=== PATIENT | female | born 1965 | race African-American/Black ===

== ENCOUNTER 2023-08-03 11:51 | Emergency (ER) | payer OTHER ==
[2023-08-03 12:01] VITALS: O2SAT 100
--- NOTE | 2023-08-03 13:47 | ED Physician Documentation ---
History of Present Illness - Stated complaint Stated Complaint: UPPER RT ARM PX - Chief complaint Chief Complaint: Ext Problem - History obtained from History obtained from: Patient - Additonal information Additional information: Patient comes to the emergency department chief complaint of right shoulder pain that started 2 days ago after she began traveling from [place] to [place] via [place]. She states she had about a 48-hour trip and that she was carrying a backpack over her right shoulder when she was not on the train. She states she does not really know if it was the weight of the backpack or what, but she began to have very notable soreness in her shoulder especially on the anterior aspect. She states it also shoots down her arm. No chest pain or abdominal pain. No constitutional symptoms. She does not have any history of this before. No nausea or vomiting. No other complaints at this time. She states there was no distinct injury or other trigger that she can think of. PD PAST MEDICAL HISTORY - Past Medical History Past Medical History: Yes Cardiovascular: Hypertension Respiratory: None Neuro: None Endocrine/Autoimmune: None GI: None TRUCK CHAUFFEUR: None : None HEENT: None Musculoskeletal: None Derm: None - Present Medications Home Medications: Ambulatory Orders Medication Instructions Recorded Confirmed HYDROcod/ACETAM 5/325 [Minden 5/325] 1 - 2 tablet PO Q6H PRN #4 tablet 08/03/23 Ibuprofen [Motrin] 800 mg PO Q8H PRN #30 tablet 08/03/23 predniSONE [Deltasone] 10 mg PO [id number] #42 tab 08/03/23 - Allergies Allergies/Adverse Reactions: Allergies Allergy/AdvReac Type Severity Reaction Status Date / Time No Known Drug Allergies Allergy Verified 08/03/23 11:55 - Social History Does the pt smoke?: No Smoking Status: Never smoker Does the pt drink ETOH?: No Does the pt have substance abuse?: No - Immunizations Immunizations are current?: No - POLST Patient has POLST: No PD ED PE NORMAL - Vitals Vital signs reviewed: Yes - General General: Alert and oriented X 3, No acute distress, Well developed/nourished - HEENT HEENT: Atraumatic, EOMI, Moist mucous membranes - Neck Neck: Supple, no meningeal sign - Cardiac Cardiac: Strong equal pulses - Respiratory Respiratory: No respiratory distress - Derm Derm: Normal color, Warm and dry, No rash - Extremities Extremities: No deformity, Other (Exquisite tenderness to palpation over the anterior aspect of the right shoulder. Significantly limited range of motion will forward flexion, abduction, and internal rotation, secondary to pain. No edema or deformity.) - Neuro Neuro: Alert and oriented X 3 - Psych Psych: Normal mood, Normal affect Results - Vitals Vitals: Vital Signs - 24 hr 08/03/23 11:55 Temperature 36.5 C Heart Rate 75 Respiratory 16 Rate Blood Pressure 145/83 H O2 Saturation 100 Oxygen O2 Source Room air PD Medical Decision Making - ED course Complexity details: considered differential, d/w patient ED course: It is not really clear why this patient had some much pain in her right shoulder. She had not had a triggering injury and reported only intermittent carrying of a backpack for small portions of the last 2 days. She has never had this pain before but it definitely seem to be reproducible on palpation and with movement and as such, I felt it was most likely to be musculoskeletal in origin. The patient was treated with ibuprofen and a dose of steroid here in the ED. I have sent a prescription for the same to the [facility] in [facility] for her. We have discussed the importance of range of motion of her shoulder. She has been given the usual indications for follow-up and return. Departure - Departure Disposition: 01 Home, Self Care Clinical Impression: Shoulder pain, right Qualifiers: Chronicity: acute Qualified Code(s): M25.511 - Pain in right shoulder Condition: Stable Instructions: ED Shoulder Pain [facility] Prescriptions: predniSONE [Deltasone] 10 mg PO [id number] #42 tab Ibuprofen [Motrin] 800 mg PO Q8H PRN #30 tablet PRN Reason: PAIN &/OR FEVER HYDROcod/ACETAM 5/325 [Minden 5/325] 1 - 2 tablet PO Q6H PRN #4 tablet PRN Reason: Pain Comments: It is not clear what has caused your right shoulder pain. You do not seem to have had any specific triggering event and the time wearing the backpack over the last couple of days has been fairly scant. You may have some underlying arthritis that has been irritated by the heaviness of the backpack and this may have flared. Whatever the case, you have been started on a steroid and an anti- inflammatory/pain medication from the emergency department to help with some of the discomfort. A prescription for the same has been electronically transmitted to the [facility] pharmacy in [place]. You will need to follow-up with your primary doctor as needed for any ongoing pain. Please make the next available appointment. In the meantime, please work on the range of motion exercises that we have discussed in the emergency department.
[2023-08-03] MEDS: IBUPROFEN 600 MG TABLET PO STA (14:02)
[2023-08-03] MEDS: DEXAMETHASONE 10 MG/ML VIAL IM STA (14:02)
[2023-08-03 14:13] VITALS: BP 156/84
== END 2023-08-03 14:11 | disposition home or self-care (01) ==
LOC: ED 11:51
DX: M25.511 Pain in right shoulder (principal)
CPT/HCPCS: 96372; 99283; A9270